=== PATIENT | male | born 1995 | race Caucasian/White ===

== ENCOUNTER 2020-07-07 17:47 | Emergency (ER) | payer MEDICAID ==
[~2020-07-07] VITALS: Ht 165.1 cm; Wt 72.7 kg
[2020-07-07 17:49] VITALS: BP 152/87
[2020-07-07] MEDS ORDERED: TETRACAINE HCL/PF 0.5% 4 ML OPHTHALMIC SOLUTION OU ONE (18:15)
[2020-07-07] MEDS ORDERED: FLUORESCEIN SODIUM 1 MG STRIP OU ONE (18:15)
[2020-07-07] MEDS ORDERED: POLYMYXIN B/TRIMETHOPRIM 10 ML OPHTHALMIC SOLUTION OU ONE (18:15)
[2020-07-07] MEDS ORDERED: PROPARACAINE HCL 0.5% 15 ML OPHTHALMIC SOLUTION OU ONE (18:30)
== END 2020-07-07 20:00 | disposition home or self-care (01) ==
LOC: EMS 17:47
DX: H10.9 Unspecified conjunctivitis (principal)
CPT/HCPCS: 99284; Z7502; Z7610

== ENCOUNTER 2020-07-10 17:26 | Emergency (ER) | payer MEDICAID ==
[~2020-07-10] VITALS: Ht 165.1 cm; Wt 75.0 kg
[2020-07-10 18:37] VITALS: BP 129/94
[2020-07-10] MEDS ORDERED: IBUPROFEN 400 MG TABLET PO ONE (18:45)
[2020-07-10] MEDS ORDERED: ACETAMINOPHEN 325 MG TABLET PO ONE (18:45)
[2020-07-10 19:37] LABS: COVID AG,FIA SOURCE NASOPHARYNGEAL
== END 2020-07-10 19:50 | disposition short-term general hospital (02) ==
LOC: EMS 17:27
DX: H10.9 Unspecified conjunctivitis (principal); Z20.822 Contact with and (suspected) exposure to COVID-19
CPT/HCPCS: 87426; 99283; C9803

== ENCOUNTER 2021-04-07 17:39 | Emergency (ER) | payer MEDICAID, OTHER ==
[~2021-04-07] VITALS: Ht 165.1 cm; Wt 77.3 kg
[2021-04-07] MEDS ORDERED: ACETAMINOPHEN 325 MG TABLET PO ONE (19:15)
[2021-04-07] MEDS ORDERED: IBUPROFEN 600 MG TABLET PO ONE (19:15)
[2021-04-07 19:30] LABS: COVID AG,FIA SOURCE NASAL SWAB
[2021-04-07 19:40] LABS: BASOPHILS % (AUTO) 0.8 % (0.0-2.0); EOSINOPHILS % (AUTO) 0.7 % (1.0-6.0); HEMATOCRIT 44.7 % (41-53); HEMOGLOBIN 15.3 g/dL (13.5-17.5); LYMPHOCYTES # (AUTO) 0.6 K/uL (1.0-4.8); LYMPHOCYTES % (AUTO) 8.5 % (22.0-44.0); MEAN CORPUSCULAR HGB CONC 34.1 G/dL (31.0-37.0); MEAN CORPUSCULAR VOLUME 94 fL (80-100); MONOCYTES # (AUTO) 0.9 K/uL (0.1-1.0); MONOCYTES % (AUTO) 13.5 % (2.0-9.0); NEUTROPHILS # (AUTO) 5.2 K/uL (1.8-7.7); NEUTROPHILS % (AUTO) 76.5 % (40.0-70.0); PLATELET COUNT (AUTO) 267 K/uL (150-450); RED BLOOD CELL COUNT(AUTO) 4.76 MIL/uL (4.50-5.90); RED CELL DISTRIBUTION WIDTH 12.6 % (11.5-14.5)
[2021-04-07 19:44] LABS: ANION GAP 9 mmol/L (8-16); CALCIUM, TOTAL 9.1 mg/dL (8.8-10.5); CARBON DIOXIDE 29 mmol/L (22-29); CHLORIDE 98 mmol/L (98-107); CREATININE 1.15 mg/dL (0.60-1.30); GLOMERULAR FILTR. RATE CALC > 60 mL/min (>60); GLUCOSE,RANDOM 97 mg/dL (70-110); POTASSIUM 3.5 mmol/L (3.5-5.1); SODIUM SERUM 136 mmol/L (136-145); UREA NITROGEN, BLOOD 7 mg/dL (7-18)
[2021-04-07 19:50] LABS: ALANINE AMINOTRANSFERASE 132 U/L (12-78); ALBUMIN 4.1 g/dL (3.4-5.0); ALKALINE PHOSPHATASE 96 U/L (46-116); ASPARTATE AMINOTRANSFERASE 77 U/L (15-37); BILIRUBIN,TOTAL 0.4 mg/dL (0.1-1.0)
[2021-04-07 19:53] LABS: INFLUENZA TYPE B NEGATIVE FOR TYPE B (NEGATIVE)
[2021-04-07 19:58] LABS: INFLUENZA TYPE A POSITIVE FOR TYPE A (NEGATIVE)
[2021-04-07 20:17] VITALS: BP 134/85
== END 2021-04-07 20:48 | disposition home or self-care (01) ==
LOC: EMS 17:40
DX: J10.1 Influenza due to other identified influenza virus with other respiratory manifestations (principal); R74.01 Elevation of levels of liver transaminase levels; Z20.822 Contact with and (suspected) exposure to COVID-19
CPT/HCPCS: 71045; 80053; 85025; 86308; 87804; 99284; 36415-L1; 36415-TC

== ENCOUNTER 2021-11-26 11:54 | Emergency (ER) | payer MEDICAID, OTHER ==
[~2021-11-26] VITALS: Ht 167.6 cm; Wt 79.5 kg
[2021-11-26] MEDS ORDERED: FLUORESCEIN SODIUM 1 MG STRIP ONE (12:36)
[2021-11-26] MEDS ORDERED: OFLO35OS OS (12:55)
[2021-11-26 13:11] VITALS: BP 126/70
== END 2021-11-26 13:13 | disposition home or self-care (01) ==
LOC: EMS 11:54
DX: T52.0X1A Toxic effect of petroleum products, accidental (unintentional), initial encounter (principal); T26.92XA Corrosion of left eye and adnexa, part unspecified, initial encounter; Y92.89 Other specified places as the place of occurrence of the external cause; X04.XXXA Exposure to ignition of highly flammable material, initial encounter; Y93.89 Activity, other specified; Y99.0 Civilian activity done for income or pay
CPT/HCPCS: 99283